=== PATIENT | female | born 2000 | race Caucasian/White ===

== ENCOUNTER 2018-08-01 21:26 | Emergency (ER) | payer OTHER ==
[~2018-08-01] VITALS: Ht 170.2 cm; Wt 64.0 kg
--- NOTE | 2018-08-01 22:03 | NUR ---
PT. TO ROOM FROM LOBBY AT THIS TIME. PT. WAS GIVEN URINE CUP BUT HAD BEEN UNABLE TO PROVIDE SAMPLE SO FAR.
--- NOTE | 2018-08-01 22:34 | NUR ---
FIRST CONTACT WITH PT. PT C/O LEFT FLANK PAIN WITH NAUSEA X 9 DAYS. PT STATES PAIN/NAUSEA ON/OFF X 9 DAYS. PT DENIES V/D/FOSTER AT THIS TIME. PT'S FRIENDS AT BEDSIDE. BP/SPO2 MONITORS IN PLACE. CALL LIGHT WITHIN REACH.
[2018-08-01] MEDS ORDERED: KETOROLAC 30 MG/1 ML ONE (22:45)
[2018-08-01 22:50] LABS: BASOPHILS # (AUTO) 0.04 x10^3/uL (0-0.3); BASOPHILS % (AUTO) 1 % (0-1); EOSINOPHILS # (AUTO) 0.06 x10^3/uL (0-0.8); EOSINOPHILS % (AUTO) 1 % (1-7); LYMPHOCYTES # (AUTO) 1.39 x10^3/uL (1-6.1); LYMPHOCYTES % (AUTO) 33 % (22-44); MD NO; MEAN CORPUSCULAR HEMOGLOBIN 30.5 pg (27.0-34.8); MEAN CORPUSCULAR VOLUME 89.7 fL (80-100); MEAN PLATELET VOLUME 8.6 fL (7.4-10.4); MONOCYTES # (AUTO) 0.58 x10^3/uL (0-1.4); MONOCYTES % (AUTO) 14 % (2-9); NEUTROPHILS # (AUTO) 2.15 x10^3/uL (1.8-8.0); NEUTROPHILS % (AUTO) 51 % (42-75); PLATELET COUNT 240 x10^3/uL (130-400); RED BLOOD COUNT 4.19 x10^6/uL (3.82-5.3); RED CELL DISTRIBUTION WIDTH 14.1 % (9.6-15.2)
[2018-08-01] MEDS ORDERED: KETOROLAC 30 MG/1 ML IM ONE (23:00)
[2018-08-01 23:02] LABS: ALANINE AMINOTRANSFERASE 14 U/L (12-78); ALBUMIN 3.5 g/dL (3.4-5.0); ANION GAP 9 mmol/L (5-15); CALCIUM 8.3 mg/dL (8.5-10.1); CHLORIDE 112 mmol/L (98-107); CREATININE 0.85 mg/dL (0.55-1.02)
[2018-08-01 23:03] LABS: HCG UR SG 1.017 (1.003-1.030)
[2018-08-01 23:04] LABS: CULTURE INDICATED? YES; MICROSCOPIC INDICATED
[2018-08-01 23:05] LABS: ALKALINE PHOSPHATASE 78 U/L (45-117); BILIRUBIN,TOTAL 0.3 mg/dL (0.2-1.0); TOTAL PROTEIN 6.7 g/dL (6.4-8.2)
--- NOTE | 2018-08-01 23:07 | NUR ---
pt medicated per emar. pt tolerated well. pt denies any pain at this time. pt aox4. resps even and unlabored.
--- NOTE | 2018-08-01 23:20 | NUR ---
PT IN CT NOW.
--- NOTE | 2018-08-01 23:28 | NUR ---
pt back to room. pt denies pain still. pt aox4. resps even and unlabored.
[2018-08-01 23:29] VITALS: BP 107/67
--- NOTE | 2018-08-02 | NUR ---
preceptor note: CT results reveiwed by ROLF Blackman, awaiting further orders at this time.
[2018-08-02] MEDS ORDERED: TAMSULOSIN 0.4 MG CAP.ER.24H ONE (00:08)
--- NOTE | 2018-08-02 00:18 | NUR ---
PT GIVEN DC INSTRUCTIONS AND SCRIPTS. PT EDUCATED REGARDING DC MEDICATIONS WHICH AREMOTRIN, ZOFRAN, FLOMAX, AND NORCO. PT AMB TO DC WITH STEADY GAIT. PT DENIES ANY PAIN AT DC. PT AOX4. RESPS EVEN AND UNLABORED. NO ACUTE DISTRESS AT DC.
[2018-08-02] MEDS ORDERED: TAMSULOSIN 0.4 MG CAP.ER.24H PO ONE (00:30)
== END 2018-08-02 00:19 | disposition home or self-care (01) ==
LOC: ED 23:40
DX: N23 Unspecified renal colic (principal)
CPT/HCPCS: 36415; 74176; 80053; 81001; 81025; 85025; 87086; 96372; 99284; J1885